=== PATIENT | male | born 1955 | race Caucasian/White ===

== ENCOUNTER 2017-05-22 05:18 | Day surgery (SDC) | payer OTHER ==
[~2017-05-22] VITALS: Ht 182.9 cm; Wt 82.0 kg
[~2017-05-22 05:18] MED LIST: IBUP-1222 PO
[2017-05-22] MEDS ORDERED: LACTATED RINGERS 1,000 ML IV SCH (06:04)
[2017-05-22 06:16] VITALS: BP 127/92
[2017-05-22] MEDS ORDERED: LIDOCAINE GEL 2%, 5ML ONE (06:18)
[2017-05-22] MEDS ORDERED: MIDAZOLAM 1 MG/ML, 2ML ONE (06:18)
[2017-05-22] MEDS ORDERED: CEFAZOLIN 1,000 MG ONE (06:18)
[2017-05-22] MEDS ORDERED: PROPOFOL 10 MG/ML, 20ML ONE (06:18)
[2017-05-22] MEDS ORDERED: DEXAMETHASONE 4 MG/ML, 1ML ONE (06:18)
[2017-05-22] MEDS ORDERED: SUCCINYLCHOLINE 20 MG/ML, 10ML ONE (06:18)
[2017-05-22] MEDS ORDERED: BUPIVACAINE/PF 0.5% ONE ×2 (06:18→06:20)
[2017-05-22] MEDS ORDERED: ONDANSETRON 2MG/ML, 2ML ONE (06:18)
[2017-05-22] MEDS ORDERED: LIDOCAINE-MPF 2% ,5ML ONE (06:18)
[2017-05-22] MEDS ORDERED: FENTANYL PF 100 MCG/2ML ONE (06:18)
[2017-05-22] MEDS ORDERED: LIDOCAINE/PF 1%, 30ML ONE (06:20)
[2017-05-22] MEDS ORDERED: EPINEPHRINE 1 MG/ML, 1ML ONE (06:21)
[2017-05-22] MEDS ORDERED: ROCURONIUM 10 MG/ML,10ML ONE (06:54)
[2017-05-22] MEDS ORDERED: BUPIVACAINE/PF-EPI 0.5% 1:200K INFIL ONE (07:16)
[2017-05-22] MEDS ORDERED: LIDOCAINE 1%-EPI 1:100K, 30ML INFIL ONE (07:16)
[2017-05-22] MEDS ORDERED: KETOROLAC 30 MG/1 ML ONE (08:08)
[2017-05-22] MEDS ORDERED: IBUPROFEN 600 MG TABLET PO SCH (09:00)
[2017-05-22] MEDS ORDERED: DIAZEPAM 5 MG/ML, 2ML IVPush PRN (09:30)
[2017-05-22] MEDS ORDERED: ONDANSETRON 2MG/ML, 2ML IVPush PRN (09:30)
[2017-05-22] MEDS ORDERED: LORazepam 2 MG/ML, 1ML IVPush PRN (09:30)
[2017-05-22] MEDS ORDERED: ACETAMINOPHEN 325 MG TABLET PO PRN (09:30)
[2017-05-22] MEDS ORDERED: LABETALOL 5MG/ML, 20ML IV PRN (09:30)
[2017-05-22] MEDS ORDERED: hydrALAzine 20 MG/ML, 1ML IV PRN (09:30)
[2017-05-22] MEDS ORDERED: OXYcodone 5 MG/5 ML ORAL.SOL UDC PO PRN (09:30)
[2017-05-22] MEDS ORDERED: HYDROmorphone 1 MG/ML, 1ML IV PRN (09:30)
[2017-05-22] MEDS ORDERED: MEPERIDINE/PF 25MG/0.5ML IVPush PRN (09:30)
[2017-05-22] MEDS ORDERED: MIDAZOLAM 1 MG/ML, 2ML IV PRN (09:30)
[2017-05-22] MEDS ORDERED: ALBUTEROL/IPRATROPIUM 2.5MG/0.5MG, 3 ML NPPB PRN (09:30)
[2017-05-22] MEDS ORDERED: PROMETHAZINE 25 MG/ML, 1ML IV PRN (09:30)
[2017-05-22] MEDS ORDERED: FENTANYL PF 100 MCG/2ML IV PRN (09:30)
== END 2017-05-22 10:20 ==
LOC: OUT 05:18
PROVIDERS: ATTEND Orthopaedic Surgery
DX: S43.431A Superior glenoid labrum lesion of right shoulder, initial encounter (principal); S46.111A Strain of muscle, fascia and tendon of long head of biceps, right arm, initial encounter; M75.111 Incomplete rotator cuff tear or rupture of right shoulder, not specified as traumatic; M19.011 Primary osteoarthritis, right shoulder; M75.41 Impingement syndrome of right shoulder; X58.XXXA Exposure to other specified factors, initial encounter; Y93.89 Activity, other specified; Y92.89 Other specified places as the place of occurrence of the external cause; Y99.8 Other external cause status; Z79.82 Long term (current) use of aspirin; Z72.89 Other problems related to lifestyle
CPT/HCPCS: 23430; 29823; 29824; 29826; 93005; C1713; J0171; J0330; J0690; J1100; J1885; J2250; J2405; J2704; J3010; J3490; J7120